=== PATIENT | female | born 1975 | race Caucasian/White ===

== ENCOUNTER → 2018-01-12 16:21 | Outpatient (CLI) | payer SELFPAY ==
[2018-01-12 21:59] LABS: Chlamydia Trachomatis by PCR Negative (Negative); Neisserai gonorrhoeae by PCR Negative (Negative); Probe Check PASS; Sample Adequacy Control PASS; Specimen Processing Control PASS
[2018-01-17 14:44] LABS: HPV Reflexed? NOT INDICATED
== END ==
PROVIDERS: Family Provider Family Medicine; PCP Family Medicine; Visit Provider Family Medicine
DX: Z12.4 Encounter for screening for malignant neoplasm of cervix (principal)
CPT/HCPCS: 87491; 87591; 88175; G0145

== ENCOUNTER → 2019-01-18 15:30 | Outpatient (CLI) | payer OTHER, SELFPAY ==
[2019-01-19 15:50] LABS: Chlamydia Trachomatis by PCR Negative (Negative); Neisserai gonorrhoeae by PCR Negative (Negative); Probe Check PASS; Sample Adequacy Control PASS; Specimen Processing Control PASS
[2019-01-25 15:03] LABS: HPV HC, High Risk Negative (Negative)
== END ==
PROVIDERS: Family Provider Family Medicine; PCP Family Medicine; Referring Provider Family Medicine; Visit Provider Family Medicine
DX: Z12.4 Encounter for screening for malignant neoplasm of cervix (principal); Z20.2 Contact with and (suspected) exposure to infections with a predominantly sexual mode of transmission
CPT/HCPCS: 87491; 87591; 87624; 88175; G0145

== ENCOUNTER → 2019-01-18 15:48 | Outpatient (CLI) | payer OTHER, SELFPAY ==
[2019-01-18 18:51] LABS: HIV - WCH Non-Reactive (Nonreactive)
[2019-01-19 02:06] LABS: Rapid Plasmin Reagin (RPR) NONREACTIVE (NONREACTIVE)
== END ==
PROVIDERS: Family Provider Family Medicine; PCP Family Medicine; Referring Provider Family Medicine; Visit Provider Family Medicine
DX: Z20.9 Contact with and (suspected) exposure to unspecified communicable disease (principal)
CPT/HCPCS: 36415; 86592; 86703

== ENCOUNTER 2019-11-02 12:36 | Observation (INO) | payer SELFPAY ==
--- NOTE | 2019-11-01 23:20 | HP.PCM_ITS ---
History and Physical Date of Admission: 11/02/19 HISTORY OF PRESENT ILLNESS 44 year old woman presents with complaints of bilateral macromastia as well as associated painful symptomatology of neck pain, thoracic back pain, bilateral shoulder pain from shoulder grooving from the weight of her breasts on her bra straps, and inframammary intertrigo for which she uses powders for relief. She denies any trauma to her breasts. Denies any nipple discharge. She does have a family history of breast cancer. She has been to a Chiropractor without much relief in her back pain. The breast reduction mammaplasty procedure was denied by her insurance company, and it was deemed cosmetic. She wishes to proceed with the procedure and understands she will be financially responsible. She had a recent mammogram on 09/10/19. There was calcification in the left breast that was indeterminate. Additional views were recommended. There were no significant masses, calcifications, or other findings seen in the right breast. On 10/09/19 additional mammographic views were done on the left breast. There were grouped pleomorphic calcifications in the left breast that were suspicious for malignancy. A stereotactic biopsy was recommended. On 10/22/19 the patient underwent a stereotactic guided biopsy left breast. The Pathology was negative for carcinoma. PAST MEDICAL HISTORY Back problem UTI (urinary tract infection) PAST SURGICAL HISTORY loop electrical excision procedure (LEEP) stereotactic guided biopsy left breast - 10/22/19 ALLERGIES No Known Allergies MEDICATIONS None FAMILY HISTORY Aunt - Breast cancer Grandmother - Breast cancer Grandfather -CVA (cerebral vascular accident) Sister -Heart disease SOCIAL HISTORY Smoking Status: Never smoker alcohol intake: current substance use type: does not use REVIEW OF SYSTEMS General - Denies fever, fatigue, and weight loss. Eyes - Denies cataracts and glaucoma. ENT - Denies nasal congestion and sore throat. Endocrine - Denies excessive thirst and urination. Skin - Denies suspicious lesions and skin cancer. Has inframammary intertrigo for which she uses powders for relief. Musculoskeletal - Denies joint pain, joint stiffness, weakness of muscles and joints, and arthritis. Has neck pain and back pain. Her neck and back pain involve cervical and thoracic area. Has bilateral shoulder pain from shoulder grooving from the weight of her breasts on her bra straps. Neuro - Denies headaches. Cardiovascular - Denies chest pain, fatigue, and shortness of breath with exertion. Psych - Denies anxiety and depression. Respiratory - Denies shortness of breath and chronic cough. Has asthma. Gastrointestinal - Denies nausea, vomiting, diarrhea and constipation. Hematologic - Denies abnormal bruising and bleeding. Genitourinary - Denies hematuria. Has urinary frequency. PHYSICAL EXAMINATION General - Alert and oriented. Patient's bra size is 32 DDD. HEENT - PERRL. EOMI. Throat is clear. Neck - Supple. No bony tenderness. There is some pericervical soft tissue tenderness. Lungs- Clear to auscultation. Heart - Regular rate and rhythm. Breasts - Patient has bilateral macromastia. Left breast is slightly larger than the right breast. No breast masses palpable. No axillary adenopathy noted. Distance from midclavicular line on the left to the nipple is 27 cm and from the nipple to the inframammary fold is 11 cm. Distance from midclavicular line on the right to the nipple is 26 cm and from nipple to the inframammary fold is 10 cm. Nipple areolar complex diameter is 5.5 cm bilaterally. No active inframammary intertrigo noted at this time. Abdomen - Soft and non distended. Back - No bony tenderness noted. There is perivertebral soft tissue tenderness in the upper thoracic area. Extremities - FROM. No axillary adenopathy. Radial pulses are palpable. There is some bilateral shoulder tenderness with shoulder grooving from the weight of her breasts on her bra straps. Neuro - CN II-XII grossly intact. Psych - Normal and mood and affect. ASSESSMENT 1. Bilateral macromastia. 2. Neck pain. 3. Thoracic back pain. 4. Bilateral shoulder pain from shoulder grooving from the weight of the breasts on her bra straps. 5. Inframammary intertrigo. 6. Family history of breast cancer. PLAN Discussed with the patient the procedure of breast reduction mammoplasty. I feel this procedure would be beneficial in this patient as it would help relieve her painful symptomatology. She had a recent mammogram in August, that required additional views on the left in early September,. Suspicious calcifications were seen and she underwent a stereotactic guided biopsy on 10/22/19. Pathology results were negative for carcinoma. For the bilateral breast reduction mammaplasty, I would remove approximately 250 grams of breast tissue per side. We will send the tissue to pathology for analysis to rule out carcinoma. Discussed with patient the extent of scarring for this procedure. The biggest risk for wound healing problems is the T-zone area. Usually wound care and so metimes antibiotics are necessary for healing in this area. She would have drains in for a few days depending on the amount of tissue that is removed. She will be on antibiotics until the drains are removed. Also discussed with the patient that a breast reduction procedure may make it difficult to breast feed in the future. She states that if she has children in the future and if she cannot breast feed, then she will bottle feed. For final breast size, the patient would like to be a C cup, if possible. Surgery will be under general anesthesia with a surgical observation overnight stay in the hospital. Will have her off work for 2 weeks postoperatively, tentative. Patient was informed of the risks and complications of the procedure including alternatives to surgery. These were discussed with her personally. She voices understanding and wishes to proceed. Some of the risks and complications were included in a form from the [employer] [employer]. Since the surgery was denied, she still wants to proceed with the surgery, and she understands that she would be financially responsible for the procedure. She had some preop questions that were answered personally and to her satisfaction. Her office breast reduction consent was signed.
[2019-11-02] VITALS (12 sets, daily range): BP systolic 86–110; BP diastolic 45–72; PULSE 62–75; RESP 14–18; TEMP 36–37; O2SAT 93–99; BMI 22.0
--- NOTE | 2019-11-02 | BR_PTH ---
PATIENT: ARELIS WILKINS LOC: MS3 U#:[id number] AGE/SX: 44/F ROOM: [facility] RE11/02/[address]: Dr. Lazaro Hagen MD : [id number] BED: 1 DIS: 11/03/2019 SPEC #: [id number] RECD: 11/02/19 14:37 STATUS: SOUArielle REQ #: [id number] SHER: 11/02/19 00:[address]: Lazaro Hagen DEPT: SURGICAL PATHOLOGY RECD BY: Juan Arredondo ENTERED: 11/02/19 14:37 SP TYPE: MAMOPLASTY OTHR DR: DALLIN Segura Tissues: A - Right breast, NOS B - Left breast, NOS Procedures: Surgery Specimen Level IV HEADER OPERATION: Bilateral breast reduction mammoplasty PRE-OP DIAGNOSIS: Bilateral macromastia; neck pain; thoracic back pain TISSUE SUBMITTED: A - Right breast tissue, B - Left breast tissue MICROSCOPIC DIAGNOSIS A. Right breast tissue, reduction mammoplasty: Fibrocystic change. Focal Banal microcalcifications. Skin with no pathologic change. B. Left breast tissue, reduction mammoplasty: Fibrocystic change. Focal Banal microcalcifications. Skin with no pathologic change. AM:esperanza 11/05/19 MICROSCOPIC DESCRIPTION Slides are reviewed. GROSS DESCRIPTION A - Received in fixative is one container labeled with the patient's name and designated right breast tissue. The specimen consists of multiple pieces of fibroadipose tissue. A few of the pieces show skin weighing in aggregate 250 gm and measuring in aggregate 19 x 12 x 4 cm. Sections reveal fibroadipose cut surfaces with focal area of small minute cyst formation filled with brownish, turbid fluid. No mass lesion is identified. Professional Architect sections are submitted in six cassettes. Cassette 6 contains the overlying skin. B - Received in fixative is one container labeled with the patient's name and designated left breast tissue. The specimen consists of multiple pieces of fibroadipose tissue. A few of the pieces show skin weighing in aggregate 250 gm and measuring in aggregate 17 x 13 x 5 cm. Sections reveal fibroadipose cut surfaces with focal area of small minute cyst formation filled with brownish, turbid fluid. No mass lesion is identified. Professional Architect sections are submitted in six cassettes. Cassette 6 contains the overlying skin. / SJ:esperanza 11/02/19 TC:5 CPT: 09328 x2
[2019-11-02 06:04] LABS: Internal QC Validated? YES +Cl - CLEAR BKGD; Pregnancy, Urine Negative Negative
[2019-11-02] MEDS: Gabapentin 600 MG Tablet PO (06:07)
[2019-11-02] MEDS: Acetaminophen 500 MG Tablet 1000 MG PO ×2 (06:08→17:14)
[2019-11-02] MEDS: Scopolamine 1mg/72hr Patch 1 PATCH TRANSDERM. (06:08)
[2019-11-02] MEDS: Lactated Ringers 1,000 ML 40 ML IV ×2 (06:26→11:00)
[2019-11-02] MEDS: Magnesium Sulfate 4gm/100mL 4 GM/100 ML IV.SOLN. IV (06:27)
[2019-11-02 06:36] LABS: Bedside Glucose 68 mg/dL (70-110)
[2019-11-02] MEDS: Cefazolin 2 GM in 0.9% Normal Saline 100 ML IV (07:41)
--- NOTE | 2019-11-02 12:30 | OP.PCM_ITS ---
Report of Operation Date of Procedure: 11/02/19 Pre-Operative Diagnosis: 1. Bilateral macromastia. 2. Neck pain. 3. T horacic back pain. 4. Bilateral shoulder pain from shoulder grooving from the weight of the breasts on her bra straps. 5. Inframammary intertrigo. 6. Family history of breast cancer. Post-Operative Diagnosis: Same. Surgery/Procedure Performed:: Bilateral breast reduction mammaplasty. Description of Surgical Findings:: 44 year old woman presents with complaints of bilateral macromastia as well as associated painful symptomatology of neck pain, thoracic back pain, bilateral shoulder pain from shoulder grooving from the weight of her breasts on her bra straps, and inframammary intertrigo for which she uses powders for relief. She denies any trauma to her breasts. Denies any nipple discharge. She does have a family history of breast cancer. She has been to a Chiropractor without much relief in her back pain. The breast reduction mammaplasty procedure was denied by her insurance company, and it was deemed cosmetic. She wishes to proceed with the procedure and understands she will be financially responsible. She had a recent mammogram on 09/10/19. There was calcification in the left breast that was indeterminate. Additional views were recommended. There were no significant masses, calcifications, or other findings seen in the right breast. On 10/09/19 additional mammographic views were done on the left breast. There were grouped pleomorphic calcifications in the left breast that were suspicious for malignancy. A stereotactic biopsy was recommended. On 10/22/19 the patient underwent a stereotactic guided biopsy left breast. The Pathology was negative for carcinoma. Patient was informed of the risks and complications of the procedure including alternatives to surgery. These were discussed with the patient personally. Patient voices understanding and wishes to proceed. Some of the risks and complications were included in a form from the [employer]. IV Fluids - 1300 ml. Urine Output - 600 ml. Tissue removed from the left breast - 264 grams. Tissue removed from the right breast - 238 grams. I used Lora absorbable hemostat, (I used 4 vials, 2 in each breast). Reference Number - [id number]. Lot Number - [id number]. Expiration - August 27, 2023. trailer mechanic: Jv Guillen. Type of Anesthesia:: General Specimen's removed: 1. Left breast tissue to Pathology. 2. Right breast tissue to Pathology. Drains: Johnny x2 (one in each breast). Estimated Blood Loss (mL): 150 ml. Fluids Replaced: 1900 ml (IV Fluids 1300 ml, Urine Output 600 ml). Description of Procedure: In the preop area, the patient was placed in the sitting position and preoperative markings were made. The sternum midline was marked down to the umbilicus. The inframammary folds were marked bilaterally. The midclavicular line was then marked down to the nipple, then from the nipple to the inframammary fold. The inframammary fold was then superimposed on the midclavicular line and I made a point 1 cm below that to be the new position of the nipple-areolar complex. 7 cm lines were then drawn divergent from that point to encompass the nipple-areolar complex. The distance between the divergent lines was 9 cm. The patient was then placed in the supine position and taken to the operating room and placed under general anesthesia and her breasts were prepped and draped in usual fashion. Ioban draping was also used. SCDs were placed for DVT prophylaxis. Perioperative antibiotics were given intravenously. A Adams catheter was also placed. I then tattooed the preoperative markings with methylene blue and 25-gauge needle. I also tattooed the 12 o'clock position of the nipple-areolar complex to help with positioning of the nipple-areolar complex when it is brought through the keyhole incision at the end of the procedure to minimize kinking and twisting of the central breast mound pedicle. I then romelia straight lines down from the lines drawn divergent around the nipple-areolar complex down to the inframammary fold. The width of the pedicle is 8 cm. I then used a 42 mm circular template for a new size of the nipple-areolar complex. The central markings were infiltrated with Xylocaine and epinephrine. The central skin was then deepithelialized. I started on the right side first and then went to the left side. I then mobilized medial and lateral breast flaps at the level of Patricia's fascia down to within a centimeter of the chest wall. This was met in the midline of the breast with dissection at the level of Patricia's fascia down to within a centimeter of the chest wall. Once the central breast mound pedicle was from the skin envelope, the reduction was then begun. Most of the tissue was removed from the superior aspect of the breast and the lateral aspect of the breast. There was extensive fibrous tissue and fibrous cysts that drained clear and greenish fluid when incised. I then sutured the leading edge of the medial and lateral breast flaps to the midline of the inframammary fold with 2-0 Vicryl suture. The vertical incision was approximated using surgical clips. The excess tissue from the medial and lateral breast flaps were excised and the horizontal incision was approximated using surgical clips. The patient was then placed in a sitting position. Using a vertical limb length of 4.5 cm, I romelia the new position of the new nipple-areolar complexes on both breasts. They were in good position on the central aspect of the breast mound. Good symmetry was noted between the left breast and the right breast. Good shape and contour and projection was noted and appeared clinically to be a full C cup. The patient was then placed back in the supine position and the surgical clips were removed. The breast wounds were then irrigated with Irrisept 0.05% Chlorhexidine solution which was followed by saline irrigation. Hemostasis was obtained using electrocautery. The tissue removed from the left breast was 264 grams. The tissue removed from the right breast was 238 grams. The tissue that was removed from the breasts was sent to Pathology for analysis to rule out carcinoma. After hemostasis was obtained using electrocautery, I then sprayed Lora absorbable hemostat into both breast wounds. I used two vials for each side. I then placed a size 15 Johnny drain into each breast wound to be brought through the lateral aspect of the horizontal incision. I then closed the breast wounds by first approximating the leading edge of the medial and lateral breast flaps to the midline of the inframammary fold with 2-0 Vicryl suture. The deep dermis and subcutaneous tissue of the vertical incision and the horizontal incisions were approximated using 3-0 Monocryl interrupted sutures. The horizontal incision was then approximated using 4-0 V-Loc unidirectional barbed running subcuticular suture. I also placed a few 4-0 Prolene vertical mattress interrupted sutures at the level of the Tzone. The vertical incision was then closed on the skin with 4-0 Prolene interrupted sutures. With a vertical limb length of 4.5 cm, I romelia a circular incision where the nipple-areolar complex would be brought through this keyhole incision. Incisions were made and the nipple areolar complex was brought through the keyhole incision. The 12 o'clock position of the nipple-areolar complex was lined up with the 12 o'clock position of the breast skin. The nipple-areolar complex was secured to the breast skin using 3-0 Monocryl interrupted sutures for deep dermis and subcutaneous tissue. The skin was approximated using 4-0 Prolene simple interrupted sutures. This was then covered with Histoacryl skin tissue adhesive. I sutured the drain to the skin using 3-0 nylon suture. At the end of the procedure, the breasts were soft with no evidence of vascular compromise. No evidence of hematomas were noted. The nipples were viable. I then dressed the breasts with a Kerlix gauze and a surgical bra. The patient tolerated the procedure well and will be sent to the recovery room in satisfactory condition. She will be admitted for surgical observation overnight stay. She will go home tomorrow once she is tolerating oral pain medication. I will remove the drains in a few days. She will be maintained on antibiotics until the drains are removed and then a few days after that because of the draining cysts that were encountered during the procedure to minimize infection. She will keep her head elevated during the initial postoperative period. She will be maintained on a lifting restriction and keep her head elevated during the initial postoperative period. Postoperatively, she may get a compression sports bra as well. She will have the Adams removed in the morning. She will be sent home on antibiotics and pain medicine. Sutures will be removed in 1-2 weeks. Grafts/Implants Used: None. - Complications None. - Admit VTE Documentation VTE Present on Admission: No VTE Mechan Device Prophylaxis: SCD's VTE Pharm Prophylaxis ordered?: Yes Code Visit Surgery Charges - Cosmetic CPT - 73602 ICD-10 - N62, M54.2, M54.6, M25.519, L30.4, Z80.3 [id number] N62, M54.2, M54.6, M25.519, L30.4, Z80.3
[2019-11-02] MEDS: Lactated Ringers 1,000 ML 60 ML IV (15:49)
[2019-11-02] MEDS: Ensure Surgery 237 ML LIQUID PO (17:14)
[2019-11-02] MEDS: oxyCODONE 5 MG Tablet PO (20:38)
[2019-11-02] MEDS: Cefazolin 1 GM/50 ML BAG IV (22:31)
[2019-11-02] MEDS: Docusate Sodium 100 MG Capsule PO (22:31)
[2019-11-03] MEDS: Acetaminophen 500 MG Tablet 1000 MG PO ×3 (00:09→12:51)
[2019-11-03] MEDS: oxyCODONE 5 MG Tablet PO ×2 (02:14→13:06)
[2019-11-03 02:20] VITALS: BP 92/52; PULSE 62; RESP 18; TEMP 36.6; O2SAT 99
[2019-11-03] MEDS: Cefazolin 1 GM/50 ML BAG IV (06:06)
[2019-11-03 08:19] VITALS: O2SAT 98
[2019-11-03] MEDS: Docusate Sodium 100 MG Capsule PO (10:07)
[2019-11-03] MEDS: Gabapentin 100 MG Capsule 200 MG PO (10:07)
[2019-11-03] MEDS: Ensure Surgery 237 ML LIQUID PO (10:10)
[2019-11-03 10:12] VITALS: BP 99/58; PULSE 67; RESP 18; TEMP 36.8; O2SAT 98
--- NOTE | 2019-11-03 12:51 | PCM.PN.SRG ---
Subjective: Postop #1 Patient is resting comfortably. She is tolerating po analgesia. - Physical Exam Vitals/I&O's: Vital Signs Temp Pulse Resp BP Pulse Ox 98.3 F 67 18 99/58 L 98 11/03/19 10:12 11/03/19 10:12 11/03/19 10:12 11/03/19 10:12 11/03/19 10:12 Oxygen Flow Rate (L/min) 6 Oxygen Delivery Method Room Air Weight: 128 lb 4.944 oz Body Mass Index (BMI) 22.0 Intake and Output for Last 24 Hours 11/01/19 11/02/19 11/03/19 23:59 23:59 23:59 Intake Total 1986.67 / 1986.67 648 / 648 Output Total 905 / 1395 1430 / 1430 Balance 1082.67 / 592.67 -782 / -782 Drainage 55 ml yesterday, 80 ml today. General: Alert, Oriented x3 HEENT: PERRLA, EOMI Oral: Moist Mucosa Neck: Supple Abdomen: Soft, Non-Distended Skin: Incision - breast incisions are dry and intact. No clinical evidence of hematoma. Breasts are soft and symmetrical. Nipples are viable. Neurological: Cranial nerves II-XII grossly intact Psych/Mental Status: Normal Affect, Appropriate Current Medications Acetaminophen (Tylenol) 1,000 mg PO Q6 [facility] Last Admin: 11/03/19 06:05 Dose: 1,000 mg Documented by: Docusate Sodium (Colace) 100 mg PO BID [facility] Last Admin: 11/03/19 10:07 Dose: 100 mg Documented by: Enoxaparin Sodium (Lovenox) 40 mg SC DAILY [facility] Last Admin: 11/03/19 10:07 Dose: Not Given Documented by: Enteral Nutritional Formula (Ensure Surgery) 237 ml PO TIDCM [facility] Last Admin: 11/03/19 10:10 Dose: 237 ml Documented by: Gabapentin (Neurontin) 200 mg PO TIDCM [facility] Last Admin: 11/03/19 10:07 Dose: 200 mg Documented by: Hydromorphone HCl (Dilaudid Inj) 0.5 - 1 mg IV Q3H PRN PRN PRN Reason: Pain Score 6-10/10 Lactated Ringer's () 1,000 mls @ 40 mls/hr IV .Q25H [facility] Last Infusion: 11/02/19 16:03 Dose: Infused Documented by: Lactated Ringer's () 1,000 mls @ 60 mls/hr IV .[id number] [facility] Last Infusion: 11/03/19 10:02 Dose: Infused Documented by: Cefazolin Sodium () 1 gm in 50 mls @ 100 mls/hr IV Q8 [facility] Last Infusion: 11/03/19 06:36 Dose: Infused Documented by: Insulin Human Lispro (Humalog Kwikpen (Bkc)) 1 - 6 unit SC Q4H PRN PRN; Protocol PRN Reason: BG>/= 180, SEE PROTOCOL Magnesium Oxide (Mag-Ox 400) 400 mg PO BID PRN PRN PRN Reason: Constipation Ondansetron HCl (Zofran Odt) 4 mg PO Q6H PRN PRN PRN Reason: NAUSEA Oxycodone HCl (Oxyir) 5 - 10 mg PO Q4H PRN PRN PRN Reason: Pain Score 4-10/10 Last Admin: 11/03/19 02:14 Dose: 5 mg Documented by: Scopolamine HBr (Transderm-Scop) 1 patch TD Q3D [facility] Stop: 11/03/19 12:58 Last Admin: 11/02/19 12:57 Dose: Not Given Documented by: Sodium Chloride () 10 - 40 ml IV UD PRN PRN Reason: SALINE FLUSH Medical Necessity - Tobacco Use Smoking Status: Never smoker Tobacco Use: Non-smoker Assessment/Plan 1. Bilateral macromastia. 2. Neck pain. 3. Thoracic back pain. 4. Bilateral shoulder pain from shoulder grooving from the weight of the breasts on her bra straps. 5. Inframammary intertrigo. 6. Family history of breast cancer. 7. s/p bilateral breast reduction mammaplasty. Breast incisions are dry and intact. No clinical evidence of hematoma. Breasts are soft and symmetrical. Nipples are viable. Tolerating po analgesia. Discharge home today. Empty drains daily and record output. Will remove drains in the office on Tuesday. Wrote script for Cefadroxil for 10 days. Patient had a lot of fibrocystic drainage during the procedure. Wrote scripts for Percocet for pain (40 tabs) and for Valium for spasm (10 tabs). Wrote scripts for Zofran for nausea (30 tabs) and a refill and for Colace for constipation (60 tabs). Followup office 11/05/19.
--- NOTE | 2019-11-03 13:02 | PCM.DC ---
You will use the following diet at home:: No restrictions Discharge Activity: May not drive while taking narcotic pain medications., May Not Shower - until the drains are removed., - - keep head elevated. no heavy lifting. maintain surgical bra and may add compression blanche wrap. May shower in (days): 2 - after the drains are removed in the office. May resume sexual activity in: No Restrictions Weight Bearing Status: Weight bearing as tolerated Lifting Restrictions: 20 lbs. Keep extremity elevated above heart level: - - elevate head. Call your doctor if your incision/area has: Continuous Slow Oozing, Sudden Increased Bleeding, Increased Pain/ Swelling, Increased Redness, Foul Smelling Discharge, Swelling at the incision site, - - nipples turning black. Call your doctor if you observe: Fever of 101 or Higher, Coldness, Increased Pain, Shortness of breath, Chest pain, Calf discomfort, Uncontrolled pain Suture Line Care: - - dry dressings every other day. if dressings have drainage on them, then change daily. Change Dressing in (Days):: 2 - will change dressing in office on tuesday11/05/19. Cleanse incision/area with: - - may get incisions wet in the shower after the drains are removed. Drain: Suction - efren drains x2 to bulb suction. empty and record output daily. Allergies/Adverse Reactions: Allergies No Known Allergies Allergy (Verified 10/25/19 10:45) Medications to take at Discharge Cefadroxil [Duricef] 500 mg PO BID #20 cap 11/03/19 Diazepam [Valium] 5 mg PO BID PRN PRN #10 tab 11/03/19 Docusate Sodium [Colace] 100 mg PO BID #60 cap 11/03/19 Ondansetron [Zofran Odt] 4 mg PO 4X/DAY PRN PRN #30 tab 11/03/19 Oxycodone HCl/Acetaminophen [Percocet 5/325] 1 tab PO Q4H PRN PRN 7 Days #40 tab 11/03/19 The following prescriptions were given: Docusate Sodium [Colace] 100 mg PO BID #60 cap Transmission Status: Pending to [facility] Cefadroxil [Duricef] 500 mg PO BID #20 cap Transmission Status: Pending to [facility] Oxycodone HCl/Acetaminophen [Percocet 5/325] 1 tab PO Q4H PRN PRN 7 Days #40 tab PRN Reason: Pain Score 4-5/10 Transmission Status: Sent to [facility] Diazepam [Valium] 5 mg PO BID PRN PRN #10 tab PRN Reason: Spasms Transmission Status: Sent to [facility] Ondansetron [Zofran Odt] 4 mg PO 4X/DAY PRN PRN #30 tab PRN Reason: Nausea Transmission Status: Pending to [facility] Primary Care Physician: Aliza Willett NP-C [Primary Care Provider] - Test Results: Test results from this visit will be discussed in further detail at your follow-up appointment, if applicable. Please Follow Up With: Lazaro Hagen MD When: tuesday11/05/19. call [phone] for appt. Proposed Discharge Date: 11/03/19
[2019-11-03 13:06] VITALS: BP 104/65; PULSE 64; RESP 16; TEMP 36.9; O2SAT 99
== END 2019-11-03 13:36 | disposition home or self-care (01) ==
LOC: SDC 12:58 → MS3 12:58
PROVIDERS: Anesthesiology; Admitting Provider Surgery; Family Provider Clinical Nurse Specialist; PCP Clinical Nurse Specialist; Referring Provider Surgery; Visit Provider Surgery
PROC: 0H0U0ZZ Alteration of Left Breast, Open Approach (ICD-10-PCS; CPT 19318; principal; 2019-11-02 07:15)
DX: N62 Hypertrophy of breast (principal); M54.2 Cervicalgia; Z80.3 Family history of malignant neoplasm of breast; M54.6 Pain in thoracic spine; M25.512 Pain in left shoulder; M25.511 Pain in right shoulder; L30.4 Erythema intertrigo
CPT/HCPCS: 00402; 19318; 81025; 82962; 88305; 96365; 96366; 99218; 99251; J7120; G0378; G0379; G0463; J2405; Q9968

== ENCOUNTER → 2019-12-04 15:23 | Outpatient (CLI) | payer SELFPAY ==
[2019-12-04 13:41] VITALS: BMI 22.0
== END ==
PROVIDERS: PCP Clinical Nurse Specialist; Referring Provider Nurse Practitioner Family; Visit Provider Nurse Practitioner Family
DX: T81.89XA Other complications of procedures, not elsewhere classified, initial encounter (principal); Z98.890 Other specified postprocedural states
CPT/HCPCS: 87070; 87205